=== PATIENT | female | born 1950 | race Caucasian/White ===

== ENCOUNTER → 2019-03-03 | Outpatient (CLI) | payer OTHER ==
[~2019-03-03] MED LIST: ASPIR 8181 M1 PO; CELEXA10 MG PO; CELEXA20 MG PO; FLEXERIL PO; METFORMIN HCL500 MG PO; VITAMIN D1000 UNI1 PO; VITAMIN D2000 UNI1 PO; ZIAC 2.5-6.251 EACH PO
== END ==
LOC: M.RAD 09:16
DX: Z12.31 Encounter for screening mammogram for malignant neoplasm of breast (principal)

== ENCOUNTER → 2020-03-13 | Outpatient (CLI) | payer OTHER | LOC: M.RAD 07:40 | PROVIDERS: ATTEND Family Medicine | DX: Z12.31 Encounter for screening mammogram for malignant neoplasm of breast (principal) ==

== ENCOUNTER 2020-04-27 17:41 | Emergency (ER) | payer OTHER ==
[~2020-04-27] VITALS: Ht 160 cm; Wt 88.5 kg
[2020-04-27] MEDS ORDERED: ALLOPURINOL 10100 M3 PO (17:54)
[2020-04-27 18:39] LABS: ABSOLUTE BASOPHILS 0.1 thou/uL (0.0-0.2); ABSOLUTE EOSINOPHILS 0.2 thou/uL (0.0-0.7); ABSOLUTE LYMPHOCYTES 1.9 thou/uL (0.8-5.3); ABSOLUTE MONOCYTES 0.9 thou/uL (0.0-1.2); ABSOLUTE NEUTROPHILS 7.8 thou/uL (1.6-8.1); BASOPHILS 0.5 %; EOSINOPHILS 1.9 %; HEMATOCRIT 33.5 % (37.0-47.0); HEMOGLOBIN 10.9 gm/dL (12.0-15.0); LYMPHOCYTES 17.5 %; MCH 23.8 pg (26.0-34.0); MCHC 32.6 g/dL (28.0-37.0); MONOCYTES 8.2 %; MPV 7.9 fl. (7.2-11.1); NUCLEATED RBCS 0 /100WBC; PLATELET COUNT* 442 thou/uL (150-400); POLYS 71.9 %; RDW-CV 17.3 % (10.5-14.5); WBC 10.9 thou/uL (4.0-11.0)
[2020-04-27 18:44] LABS: CALCIUM 8.5 mg/dL (8.5-10.1); CREATININE 0.9 mg/dL (0.6-1.3); POTASSIUM 3.7 mmol/L (3.5-5.1)
[2020-04-27 18:48] LABS: ALBUMIN 3.1 g/dL (3.4-5.0); TOTAL BILIRUBIN 0.4 mg/dL (<0.1-1.0); TOTAL PROTEIN 7.5 g/dL (6.4-8.2)
[2020-04-27] MEDS ORDERED: APAP W/CODEINE1 TA2 PO (19:16)
[2020-04-27 19:30] VITALS: BP 136/54
--- NOTE | 2020-04-28 11:06 | EKG ---
[place] [address] ELECTROCARDIOGRAM REPORT Name: OMID HAWK Room: [facility]#: [id number] Admission: 04/27/20 Attend Phys: Discharge: 04/27/20 Date of : 48 Date of Service: 04/27/20 180 Report #: [id number] THIS REPORT FOR: //name// [facility] ED Test Date: 2020-04-27 Test Time: 18:05:39 Pat Name: OMID HAWK Department: Room: Gender: F Display Maker: : 1950 Requested By: Yadi Almaguer Order Number: [id number] MD: Toño Ontiveros Measurements Intervals [place] Rate: 76 P: -9 GA: 175 QRS: 10 QRSD: 92 T: 44 QT: 405 QTc: 456 Interpretive Statements Sinus rhythm Compared to ECG 10/23/2014 00:00:37 No significant changes Electronically Signed On 04-28-2020 11:06:23 [employer] by Toño Ontiveros [email or web address] <ELECTRONICALLY SIGNED> By: Alton Ontiveros MD, [facility] 04/28/20 1106 180 04 Alton Ontiveros MD, [facility] /EPI
== END 2020-04-27 19:31 | disposition home or self-care (01) ==
LOC: M.ERS 17:41
PROVIDERS: Physician Assistant
DX: M25.512 Pain in left shoulder (principal); Z20.828 Contact with and (suspected) exposure to other viral communicable diseases; I10 Essential (primary) hypertension; E11.9 Type 2 diabetes mellitus without complications; Z90.49 Acquired absence of other specified parts of digestive tract; Z90.711 Acquired absence of uterus with remaining cervical stump; Z87.440 Personal history of urinary (tract) infections

== ENCOUNTER → 2021-06-03 | Outpatient (CLI) | payer OTHER ==
[~2021-06-03] MED LIST changes: +ALLOPURINOL 10100 M3 PO; +APAP W/CODEINE1 TA2 PO
== END ==
LOC: M.RAD 08:05
PROVIDERS: ATTEND Family Medicine
DX: Z12.31 Encounter for screening mammogram for malignant neoplasm of breast (principal)